=== PATIENT | male | born 1950 | race Caucasian/White ===

== ENCOUNTER 2017-08-05 01:02 | Inpatient (IN) | payer OTHER ==
[~2017-08-05] VITALS: Ht 182.9 cm; Wt 93.0 kg
[~2017-08-05 01:02] MED LIST: ADULT ASPIRIN81 MG PO; AVALIDE 300-12.1 TA1 PO; COREG CR10 MG; HUMALOG100 U/ML; LANTUS SOLOSTAR3 ML; LIPITOR40 MG PO; NORVASC10 MG; NORVASC10 MG PO; PLAVIX75 MG PO; TOPROL XL100 M1; TOPROL XL100 M1 PO
== END 2017-08-09 16:06 | disposition home or self-care (01) | DRG 390 ==
LOC: ER 01:02 → SURH 12:35
PROC: BW21ZZZ Computerized Tomography (CT Scan) of Abdomen and Pelvis (ICD-10-PCS; principal; 2017-08-05)
PROC: BW21Y0Z Computerized Tomography (CT Scan) of Abdomen and Pelvis using Other Contrast, Unenhanced and Enhanced (ICD-10-PCS; 2017-08-05)
DX: K56.690 Other partial intestinal obstruction (principal); I10 Essential (primary) hypertension; E11.65 Type 2 diabetes mellitus with hyperglycemia

== ENCOUNTER 2018-07-26 20:16 | Emergency (ER) | payer OTHER ==
[~2018-07-26] VITALS: Ht 182.9 cm; Wt 97.5 kg
== END 2018-07-26 23:03 | disposition home or self-care (01) ==
LOC: ER 20:16
DX: R42 Dizziness and giddiness (principal)

== ENCOUNTER → 2018-10-29 | Emergency (ER) | payer OTHER ==
[~2018-10-29] VITALS: Ht 182.9 cm; Wt 99.8 kg
== END | disposition home or self-care (01) ==
LOC: ER 18:50
DX: R07.89 Other chest pain (principal); R51 Headache

== ENCOUNTER 2019-01-16 17:24 | Emergency (ER) | payer OTHER ==
[~2019-01-16] VITALS: Ht 182.9 cm; Wt 99.8 kg
[2019-01-16] MEDS ORDERED: NIFE60TA3 (17:41)
[2019-01-16] MEDS ORDERED: ZITHROMAX500 MG PO (19:18)
== END 2019-01-16 20:54 | disposition home or self-care (01) ==
LOC: ER 17:24
DX: M54.2 Cervicalgia (principal); R07.89 Other chest pain; B96.0 Mycoplasma pneumoniae [M. pneumoniae] as the cause of diseases classified elsewhere

== ENCOUNTER 2019-04-08 21:34 | Emergency (ER) | payer OTHER ==
[~2019-04-08] VITALS: Ht 182.9 cm; Wt 99.8 kg
[~2019-04-08 21:34] MED LIST changes: +NIFE60TA3; +ZITHROMAX500 MG PO
== END 2019-04-08 23:19 | disposition home or self-care (01) ==
LOC: ER 21:34
DX: S00.83XA Contusion of other part of head, initial encounter (principal); S90.02XA Contusion of left ankle, initial encounter; S20.212A Contusion of left front wall of thorax, initial encounter; S20.211A Contusion of right front wall of thorax, initial encounter; W18.39XA Other fall on same level, initial encounter; Y93.89 Activity, other specified; Y92.89 Other specified places as the place of occurrence of the external cause; Y99.8 Other external cause status

== ENCOUNTER 2019-12-23 07:50 | Emergency (ER) | payer OTHER ==
[~2019-12-23] VITALS: Ht 182.9 cm; Wt 99.8 kg
[2019-12-23] MEDS ORDERED: NEURONTIN300 MG (07:58)
== END 2019-12-23 13:17 | disposition home or self-care (01) ==
LOC: ER 07:50
DX: R42 Dizziness and giddiness (principal); R51 Headache; R06.02 Shortness of breath; M54.89 Other dorsalgia; M50.322 Other cervical disc degeneration at C5-C6 level

== ENCOUNTER → 2020-01-08 | Emergency (ER) | payer OTHER ==
[~2020-01-08] VITALS: Ht 182.9 cm; Wt 99.8 kg
[~2020-01-08] MED LIST changes: +NEURONTIN300 MG
== END | disposition home or self-care (01) ==
LOC: ER 02:12
DX: R10.84 Generalized abdominal pain (principal); R14.0 Abdominal distension (gaseous)

== ENCOUNTER 2020-05-07 11:47 | Emergency (ER) | payer OTHER ==
[~2020-05-07] VITALS: Ht 182.9 cm; Wt 92.1 kg
== END 2020-05-07 21:47 | disposition home or self-care (01) ==
LOC: ER 11:47 → CPU-OBS 11:49 → ER 21:47
DX: K29.60 Other gastritis without bleeding (principal); R42 Dizziness and giddiness; R10.13 Epigastric pain; N50.812 Left testicular pain; N50.811 Right testicular pain; K76.0 Fatty (change of) liver, not elsewhere classified; Z20.828 Contact with and (suspected) exposure to other viral communicable diseases; Z95.0 Presence of cardiac pacemaker
CPT/HCPCS: G0378; G0379; 70450; 76700; 76870; 93005

== ENCOUNTER 2020-05-16 10:35 | Emergency (ER) | payer OTHER ==
[~2020-05-16] VITALS: Ht 182.9 cm; Wt 95.3 kg
== END 2020-05-16 19:34 | disposition home or self-care (01) ==
LOC: ER 10:35
DX: U07.1 COVID-19 (principal); B33.8 Other specified viral diseases; R53.1 Weakness; R06.02 Shortness of breath

== ENCOUNTER 2020-08-29 18:09 | Emergency (ER) | payer OTHER ==
[~2020-08-29] VITALS: Ht 182.9 cm; Wt 95.3 kg
== END 2020-08-29 23:24 | disposition home or self-care (01) ==
LOC: ER 18:09
DX: R10.84 Generalized abdominal pain (principal)
CPT/HCPCS: 74177; Q9965

== ENCOUNTER 2021-01-17 08:00 | Outpatient (CLI) | payer OTHER | END 2021-01-17 08:30 | disposition home or self-care (01) | LOC: PPH VACUNA 08:00 | DX: Z23 Encounter for immunization (principal) ==

== ENCOUNTER 2021-02-06 08:00 | Outpatient (CLI) | payer OTHER | END 2021-02-06 08:30 | disposition home or self-care (01) | LOC: PPH VACUNA 08:00 | DX: Z23 Encounter for immunization (principal) ==

== ENCOUNTER 2021-06-11 10:14 | Emergency (ER) | payer OTHER ==
[~2021-06-11] VITALS: Ht 182.9 cm; Wt 95.3 kg
== END 2021-06-11 14:34 | disposition home or self-care (01) ==
LOC: ER 10:14
DX: E11.69 Type 2 diabetes mellitus with other specified complication (principal); I10 Essential (primary) hypertension

== ENCOUNTER 2021-09-11 14:22 | Outpatient (CLI) | payer OTHER | END 2021-09-11 14:23 | disposition home or self-care (01) | LOC: MRI 14:22 | PROVIDERS: ATTEND Anesthesiology Pain Medicine | DX: M54.2 Cervicalgia (principal); M50.31 Other cervical disc degeneration, high cervical region; M54.04 Panniculitis affecting regions of neck and back, thoracic region; M50.33 Other cervical disc degeneration, cervicothoracic region | CPT/HCPCS: 72141; 72146 ==

== ENCOUNTER 2021-11-02 02:55 | Emergency (ER) | payer OTHER ==
[~2021-11-02] VITALS: Ht 182.9 cm; Wt 95.3 kg
== END 2021-11-02 13:58 | disposition designated cancer center or children's hospital (05) ==
LOC: ER 02:55
DX: R07.89 Other chest pain (principal); R00.2 Palpitations; I10 Essential (primary) hypertension; I24.9 Acute ischemic heart disease, unspecified; E78.00 Pure hypercholesterolemia, unspecified; E11.9 Type 2 diabetes mellitus without complications; Z79.4 Long term (current) use of insulin; Z88.8 Allergy status to other drugs, medicaments and biological substances; Z20.822 Contact with and (suspected) exposure to COVID-19

== ENCOUNTER 2021-11-27 13:25 | Outpatient (CLI) | payer OTHER | END 2021-11-27 13:35 | disposition home or self-care (01) | LOC: PPH VACUNA 13:25 | PROVIDERS: ATTEND Emergency Medicine Pediatric Emergency Medicine | DX: Z23 Encounter for immunization (principal) ==

== ENCOUNTER 2021-12-20 09:05 | Emergency (ER) | payer OTHER ==
[~2021-12-20] VITALS: Ht 182.9 cm; Wt 95.3 kg
[2021-12-20] MEDS ORDERED: EFFIENT10 MG PO (09:23)
[2021-12-20] MEDS ORDERED: PEPCID AC20 MG PO (13:42)
[2021-12-20] MEDS ORDERED: ONDANSETRON ODT4 MG PO (13:42)
== END 2021-12-20 14:17 ==
LOC: ER 09:05
DX: K52.9 Noninfective gastroenteritis and colitis, unspecified (principal); E11.65 Type 2 diabetes mellitus with hyperglycemia; Z79.4 Long term (current) use of insulin; I10 Essential (primary) hypertension; E78.00 Pure hypercholesterolemia, unspecified; Z88.1 Allergy status to other antibiotic agents; Z88.6 Allergy status to analgesic agent; I25.10 Atherosclerotic heart disease of native coronary artery without angina pectoris

== ENCOUNTER 2022-02-16 10:39 | Inpatient (IN) | payer OTHER ==
[~2022-02-16] VITALS: Ht 182.9 cm; Wt 95.3 kg
[~2022-02-16 10:39] MED LIST changes: +EFFIENT10 MG PO; +ONDANSETRON ODT4 MG PO; +PEPCID AC20 MG PO
== END 2022-02-19 08:15 | disposition designated cancer center or children's hospital (05) | DRG 291 ==
LOC: ER 10:39 → ICU-2 19:43
PROVIDERS: ADMIT Internal Medicine; ATTEND Internal Medicine
PROC: BW24YZZ Computerized Tomography (CT Scan) of Chest and Abdomen using Other Contrast (ICD-10-PCS; principal; 2022-02-16)
PROC: B24BZZZ Ultrasonography of Heart with Aorta (ICD-10-PCS; 2022-02-17)
DX: I11.0 Hypertensive heart disease with heart failure (principal); I50.23 Acute on chronic systolic (congestive) heart failure; I24.9 Acute ischemic heart disease, unspecified; I25.10 Atherosclerotic heart disease of native coronary artery without angina pectoris; R06.02 Shortness of breath; E11.65 Type 2 diabetes mellitus with hyperglycemia; Z79.4 Long term (current) use of insulin; Z95.0 Presence of cardiac pacemaker; E11.59 Type 2 diabetes mellitus with other circulatory complications; Z98.62 Peripheral vascular angioplasty status

== ENCOUNTER 2022-12-23 15:47 | Inpatient (IN) | payer OTHER ==
[~2022-12-23] VITALS: Ht 170.2 cm; Wt 72.6 kg
[2022-12-24] MEDS ORDERED: ROSUVASTATIN CA40 MG (13:24)
[2022-12-24] MEDS ORDERED: CARVEDILOL6.25 M1 (13:24)
[2022-12-24] MEDS ORDERED: FUROSEMIDE40 MG (13:24)
[2022-12-24] MEDS ORDERED: ENTRESTO 49 MG1 EACH (13:24)
[2022-12-24] MEDS ORDERED: PANTOPRAZOLE SO40 MG (13:24)
[2022-12-28] MEDS ORDERED: CARVEDILOL6.25 MG PO (07:35)
[2022-12-28] MEDS ORDERED: GABAPENTIN300 MG PO (07:36)
[2022-12-28] MEDS ORDERED: SPIRONOLACTONE25 MG PO (07:36)
[2022-12-28] MEDS ORDERED: ST. JOSEPH ASPI81 M2 PO (07:36)
[2022-12-28] MEDS ORDERED: KLOR-CON/EF 2525 MEQ PO (07:37)
[2022-12-28] MEDS ORDERED: BUMETANIDE1 MG PO (07:37)
[2022-12-28] MEDS ORDERED: PEPCID AC20 MG PO (07:38)
[2022-12-28] MEDS ORDERED: POM (MEDICAMENTO EN PO ×2 (07:41)
[2022-12-28] MEDS ORDERED: Lantus 1000 UNITS/10 SUBCUTANEO ×3 (07:41→12:31)
[2022-12-28] MEDS ORDERED: JARDIANCE10 MG PO (08:22)
== END 2022-12-28 16:53 | disposition home or self-care (01) | DRG 291 ==
LOC: ER 15:47 → SEC-K 22:07 → MEDI 22:07
PROVIDERS: ADMIT Internal Medicine; ATTEND Internal Medicine
PROC: B24BYZZ Ultrasonography of Heart with Aorta using Other Contrast (ICD-10-PCS; principal; 2022-12-23)
PROC: BW21ZZZ Computerized Tomography (CT Scan) of Abdomen and Pelvis (ICD-10-PCS; 2022-12-23)
PROC: 4A12X4Z Monitoring of Cardiac Electrical Activity, External Approach (ICD-10-PCS; 2022-12-23)
PROC: B922ZZZ Computerized Tomography (CT Scan) of Paranasal Sinuses (ICD-10-PCS; 2022-12-26)
PROC: B54DZZZ Ultrasonography of Bilateral Lower Extremity Veins (ICD-10-PCS; 2022-12-26)
DX: I11.0 Hypertensive heart disease with heart failure (principal); I50.23 Acute on chronic systolic (congestive) heart failure; L97.429 Non-pressure chronic ulcer of left heel and midfoot with unspecified severity; E11.621 Type 2 diabetes mellitus with foot ulcer; I25.10 Atherosclerotic heart disease of native coronary artery without angina pectoris; E11.65 Type 2 diabetes mellitus with hyperglycemia; E11.42 Type 2 diabetes mellitus with diabetic polyneuropathy; R30.0 Dysuria; J44.9 Chronic obstructive pulmonary disease, unspecified; G47.33 Obstructive sleep apnea (adult) (pediatric); Z95.1 Presence of aortocoronary bypass graft; Z79.4 Long term (current) use of insulin

== ENCOUNTER 2023-01-09 16:27 | Inpatient (IN) | payer OTHER ==
[~2023-01-09] VITALS: Ht 182.9 cm; Wt 85.7 kg
[~2023-01-09 16:27] MED LIST changes: +BUMETANIDE1 MG PO; +CARVEDILOL6.25 M1; +CARVEDILOL6.25 MG PO; +ENTRESTO 49 MG1 EACH; +FUROSEMIDE40 MG; +GABAPENTIN300 MG PO; +JARDIANCE10 MG PO; +KLOR-CON/EF 2525 MEQ PO; +Lantus 1000 UNITS/10 SUBCUTANEO; +PANTOPRAZOLE SO40 MG; +POM (MEDICAMENTO EN PO; +ROSUVASTATIN CA40 MG; +SPIRONOLACTONE25 MG PO; +ST. JOSEPH ASPI81 M2 PO
[2023-01-09] MEDS ORDERED: LASIX40 MG (16:43)
[2023-01-09] MEDS ORDERED: EFFIENT10 MG (16:43)
[2023-01-09] MEDS ORDERED: PEPCID AC20 MG (16:43)
[2023-01-09] MEDS ORDERED: ENTRESTO 49 MG1 EACH (16:43)
[2023-01-09] MEDS ORDERED: ADULT LOW DOSE81 M1 (16:44)
[2023-01-10] MEDS ORDERED: BUMETANIDE1 MG (08:37)
[2023-01-10] MEDS ORDERED: GABAPENTIN300 M2 (08:37)
[2023-01-10] MEDS ORDERED: ROSUVASTATIN CA40 MG (08:37)
[2023-01-10] MEDS ORDERED: SPIRONOLACTONE25 MG (08:37)
[2023-01-10] MEDS ORDERED: CARVEDILOL6.25 M1 (08:37)
[2023-01-10] MEDS ORDERED: KLOR-CON/EF 2525 MEQ (08:37)
[2023-01-10] MEDS ORDERED: ONDANSETRON HCL4 MG (08:38)
[2023-01-10] MEDS ORDERED: TRAZODONE HCL50 MG (08:38)
== END 2023-01-11 10:36 | disposition home or self-care (01) | DRG 312 ==
LOC: ER 16:27 → MEDJ 22:05
PROVIDERS: ADMIT Internal Medicine; ATTEND Internal Medicine
PROC: 4A12X4Z Monitoring of Cardiac Electrical Activity, External Approach (ICD-10-PCS; principal; 2023-01-09)
PROC: B345ZZZ Ultrasonography of Bilateral Common Carotid Arteries (ICD-10-PCS; 2023-01-09)
PROC: B348ZZZ Ultrasonography of Bilateral Internal Carotid Arteries (ICD-10-PCS; 2023-01-09)
PROC: BR20ZZZ Computerized Tomography (CT Scan) of Cervical Spine (ICD-10-PCS; 2023-01-09)
PROC: BW28ZZZ Computerized Tomography (CT Scan) of Head (ICD-10-PCS; 2023-01-09)
DX: I95.1 Orthostatic hypotension (principal); I50.22 Chronic systolic (congestive) heart failure; I48.20 Chronic atrial fibrillation, unspecified; I11.0 Hypertensive heart disease with heart failure; M47.22 Other spondylosis with radiculopathy, cervical region; E11.43 Type 2 diabetes mellitus with diabetic autonomic (poly)neuropathy; G25.2 Other specified forms of tremor; M54.50 Low back pain, unspecified; I49.5 Sick sinus syndrome; Z95.0 Presence of cardiac pacemaker; Z79.4 Long term (current) use of insulin; Z79.84 Long term (current) use of oral hypoglycemic drugs

== ENCOUNTER 2023-04-17 11:30 | Emergency (ER) | payer OTHER ==
[~2023-04-17] VITALS: Ht 185.4 cm; Wt 75.3 kg
[~2023-04-17 11:30] MED LIST changes: +ADULT LOW DOSE81 M1; +BUMETANIDE1 MG; +EFFIENT10 MG; +GABAPENTIN300 M2; +KLOR-CON/EF 2525 MEQ; +LASIX40 MG; +ONDANSETRON HCL4 MG; +PEPCID AC20 MG; +SPIRONOLACTONE25 MG; +TRAZODONE HCL50 MG
[2023-04-17 12:52] LABS: HEMATOCRIT 43.3 % (39.0-48.0); HEMOGLOBIN 14.8 g/dL (13-16.00); MEAN CELL VOLUME 90.4 fL (80.0-100.00); MEAN CORPUSCULAR HEMOGLOBIN 30.9 pg (27.00-32.0); MEAN CORPUSCULAR HGB CONC 34.2 g/dl (32.0-36.0); PLATELET COUNT 206 K/uL (150-450); RED BLOOD COUNT 4.79 M/uL (4.00-6.00); RED CELL DISTRIBUTION WIDTH 14.5 % (11.5-14.5)
[2023-04-17 13:09] LABS: ALBUMIN 3.9 gm/dL (3.4-5.0); BILIRUBIN TOTAL 1.83 mg/dL (0.3-1.2); BILIRUBIN,CONJUGATED 0.53 mg/dL (0.0-0.2); BILIRUBIN,UNCONJUGATED 1.3 mg/dL (0.0-0.6); CALCIUM 9.5 mg/dL (8.5-10.1); CREATININE SERUM 1.15 mg/dL (0.70-1.30); GFR 62.51; POTASSIUM 3.97 mEq/L (3.5-5.1)
[2023-04-17 16:00] LABS: URINE APPEARANCE Clear; URINE BILIRRUBIN Negative (NEGATIVE); URINE BLOOD Negative; URINE COLOR Yellow; URINE GLUCOSE Negative (NEGATIVE); URINE LEUKOCYTE Negative; URINE NITRATE Negative; URINE PROTEIN Negative (NEGATIVE); URINE UROBILINOGEN 0.2 E.U./dl
[2023-04-17 16:04] LABS: URINE BACTERIA 54.1 uL (0.0-1933)
[2023-04-17 16:12] LABS: URINE EPITHELIAL CELLS 0.4 uL (0.0-38.8); URINE WBC 0.9 uL (0.0-23.2)
== END 2023-04-17 18:54 | disposition home or self-care (01) ==
LOC: ER 11:30
PROVIDERS: General Practice
DX: R11.10 Vomiting, unspecified (principal); K29.00 Acute gastritis without bleeding

== ENCOUNTER 2023-05-03 23:24 | Emergency (ER) | payer OTHER ==
[~2023-05-03] VITALS: Ht 182.9 cm; Wt 85.3 kg
[2023-05-04] MEDS ORDERED: ALDACTONE25 MG (00:05)
[2023-05-04] MEDS ORDERED: CARVEDILOL6.25 MG (00:05)
[2023-05-04] MEDS ORDERED: OLANZAPINE2.5 MG (00:05)
[2023-05-04] MEDS ORDERED: MELATONIN10 MG (00:06)
[2023-05-04] MEDS ORDERED: SERTRALINE20 MG/1 ML (00:06)
[2023-05-04 00:30] LABS: HEMATOCRIT 38.6 % (39.0-48.0); HEMOGLOBIN 13.1 g/dL (13-16.00); MEAN CELL VOLUME 90.2 fL (80.0-100.00); MEAN CORPUSCULAR HEMOGLOBIN 30.7 pg (27.00-32.0); PLATELET COUNT 178 K/uL (150-450); RED BLOOD COUNT 4.28 M/uL (4.00-6.00); RED CELL DISTRIBUTION WIDTH 14.2 % (11.5-14.5)
[2023-05-04 00:37] LABS: INR 1.29; PARTIAL THROMBOPLASTIN TIME 27.9 SECONDS (22.0-34.0); PROTHROMBIN TIME 13.3 SECONDS (9.0-11.5)
[2023-05-04 00:41] LABS: ALBUMIN 3.5 gm/dL (3.4-5.0); BILIRUBIN TOTAL 1.65 mg/dL (0.3-1.2); CALCIUM 9.1 mg/dL (8.5-10.1); CREATININE SERUM 1.08 mg/dL (0.70-1.30); GFR 67.21; GLOBULINA 3.3 G/DL (2.4-3.5); POTASSIUM 3.94 mEq/L (3.5-5.1); TOTAL PROTEIN 6.8 gm/dL (6.4-8.2)
[2023-05-04 04:12] LABS: ABG PH 7.398 (7.35-7.45); ABG PO2 118.2 mmHg (80-100); ABG pCO2 31.9 mmHg (35-45); BASE EXCESS -4.5 mmol/l; BICARBONATE 19.2 mmol/l (23-25); SaO2 98.5 %; Tco2 20.2 mmol/l
[2023-05-04 04:13] LABS: allen test SATISFACTORY; o2 36 %; puncture site RADIAL RIGHT
== END 2023-05-04 08:58 | disposition home or self-care (01) ==
LOC: ER 23:24
PROVIDERS: General Practice
DX: R10.31 Right lower quadrant pain (principal); I11.9 Hypertensive heart disease without heart failure; I20.89 Other forms of angina pectoris; I25.118 Atherosclerotic heart disease of native coronary artery with other forms of angina pectoris; I11.0 Hypertensive heart disease with heart failure; I50.9 Heart failure, unspecified; E11.9 Type 2 diabetes mellitus without complications; Z79.4 Long term (current) use of insulin; Z88.8 Allergy status to other drugs, medicaments and biological substances; J44.9 Chronic obstructive pulmonary disease, unspecified; Z95.0 Presence of cardiac pacemaker; F32.89 Other specified depressive episodes; Z20.822 Contact with and (suspected) exposure to COVID-19
CPT/HCPCS: 36415; 71045; 82803; 96365; 96372; 99284; J1940; J2405; J3490

== ENCOUNTER 2023-05-15 02:17 | Emergency (ER) | payer OTHER ==
[~2023-05-15] VITALS: Ht 182.9 cm; Wt 85.3 kg
[~2023-05-15 02:17] MED LIST changes: +ALDACTONE25 MG; +CARVEDILOL6.25 MG; +MELATONIN10 MG; +OLANZAPINE2.5 MG; +SERTRALINE20 MG/1 ML
[2023-05-15] MEDS ORDERED: CARVEDILOL3.125 MG (02:20)
[2023-05-15] MEDS ORDERED: METFORMIN HCL500 M4 (02:22)
[2023-05-15] MEDS ORDERED: VISTARIL50 MG (02:23)
[2023-05-15] MEDS ORDERED: PEPCID AC20 MG (02:23)
[2023-05-15] MEDS ORDERED: REGLAN5 MG/5 ML (02:24)
[2023-05-15] MEDS ORDERED: TORADOL60 MG (02:24)
[2023-05-15 02:39] LABS: HEMOGLOBIN 14.4 g/dL (13-16.00); MEAN CELL VOLUME 87.3 fL (80.0-100.00); MEAN CORPUSCULAR HEMOGLOBIN 29.2 pg (27.00-32.0); MEAN CORPUSCULAR HGB CONC 33.5 g/dl (32.0-36.0); PLATELET COUNT 250 K/uL (150-450); RED BLOOD COUNT 4.93 M/uL (4.00-6.00); RED CELL DISTRIBUTION WIDTH 14.8 % (11.5-14.5)
[2023-05-15 03:00] LABS: INR 1.32; PARTIAL THROMBOPLASTIN TIME 27.3 SECONDS (22.0-34.0); PROTHROMBIN TIME 13.6 SECONDS (9.0-11.5)
[2023-05-15 03:20] LABS: ALBUMIN 3.6 gm/dL (3.4-5.0); BILIRUBIN TOTAL 1.31 mg/dL (0.3-1.2); CALCIUM 9.4 mg/dL (8.5-10.1); CREATININE SERUM 1.35 mg/dL (0.70-1.30); GFR 51.95; GLOBULINA 3.2 G/DL (2.4-3.5); POTASSIUM 4.34 mEq/L (3.5-5.1); TOTAL PROTEIN 6.8 gm/dL (6.4-8.2)
[2023-05-15 03:25] LABS: ALT/SGPT 38 U/L (12-78); AST/SGOT 41 U/L (15-37); LDH 192 U/L (87-241); PHOSPHOKINASE CREATININE 63 U/L (39-308)
== END 2023-05-15 15:26 | disposition home or self-care (01) ==
LOC: ER 02:17
PROVIDERS: General Practice
DX: F41.0 Panic disorder [episodic paroxysmal anxiety] (principal); Z88.8 Allergy status to other drugs, medicaments and biological substances; I11.9 Hypertensive heart disease without heart failure; E11.9 Type 2 diabetes mellitus without complications; Z79.4 Long term (current) use of insulin